=== PATIENT | male | born 1975 | race Two or more races ===

== ENCOUNTER 2019-04-01 10:21 | Outpatient (CLI) | payer OTHER ==
[2019-04-01 10:51] LABS: BASOPHILS # (AUTO) 0.1 K/uL (0.0-8.0); BASOPHILS % (AUTO) 1.2 % (0.0-2.0); EOSINOPHILS # (AUTO) 0.1 K/uL (0.0-0.7); EOSINOPHILS % (AUTO) 1.3 % (0.0-7.0); HEMATOCRIT 43.2 % (36.7-47.1); HEMOGLOBIN 14.4 g/dL (12.5-16.3); LYMPHOCYTES # (AUTO) 2.5 K/uL (20.0-40.0); LYMPHOCYTES % (AUTO) 27.7 % (20.5-51.5); MEAN CORPUSCULAR HEMOGLOBIN 31.9 uug (23.8-33.4); MEAN CORPUSCULAR HGB CONC 33 g/dL (32.5-36.3); MEAN CORPUSCULAR VOLUME 95.5 fL (73.0-96.2); MONOCYTES # (AUTO) 0.4 K/uL (2.0-10.0); NEUTROPHILS # (AUTO) 5.8 K/uL (1.8-8.9); NEUTROPHILS % (AUTO) 64.8 % (38.5-71.5); PLATELET COUNT (AUTO) 274 K/uL (152-348); RED BLOOD CELL COUNT(AUTO) 4.52 MIL/uL (4.06-5.63)
[2019-04-01 10:55] LABS: *BILIRUBIN,URIN NEGATIVE (NEGATIVE); *BLOOD, URINE NEGATIVE (NEGATIVE); *CLARITY,URINE CLEAR (CLEAR); *COLOR,URINE YELLOW (YELLOW); *KETONES,URINE NEGATIVE (NEGATIVE); *UROBILINOGEN,URINE 0.2 E.U./dl (NORMAL); LEUKOCYTE ESTERASE ,URINE NEGATIVE (NEGATIVE); NITRITE, URINE NEGATIVE (NEGATIVE); UGLUCOSE NEGATIVE (NEGATIVE)
[2019-04-01 11:05] LABS: CREATININE 0.9 mg/dL (0.6-1.3); POTASSIUM 3.9 mmol/L (3.5-5.1)
[2019-04-01 11:27] LABS: CREATININE 0.9 mg/dL (0.6-1.3)
[2019-04-01 11:33] LABS: BILIRUBIN,TOTAL 0.3 mg/dL (0.2-1.0); TOTAL PROTEIN, SERUM 7.7 g/dL (6.4-8.2)
== END 2019-04-01 23:59 | disposition home or self-care (01) ==
LOC: LAB 10:21
PROVIDERS: ATTEND Orthopaedic Surgery
DX: Z01.818 Encounter for other preprocedural examination (principal); S83.241A Other tear of medial meniscus, current injury, right knee, initial encounter; X58.XXXA Exposure to other specified factors, initial encounter; Y93.89 Activity, other specified; Y92.89 Other specified places as the place of occurrence of the external cause; Y99.8 Other external cause status
CPT/HCPCS: 36415; 85025; 85730; A4663

== ENCOUNTER 2019-04-04 07:51 | Day surgery (SDC) | payer OTHER ==
[2019-04-04] MEDS ORDERED: ONDANSETRON 4 MG/2 ML VIAL IV ONE (07:52)
[2019-04-04] MEDS ORDERED: PROPOFOL 200 MG/20 ML BOTTLE IV ONE (07:52)
[2019-04-04] MEDS ORDERED: METOCLOPRAMIDE HCL 10 MG/2 ML VIAL IV ONE (07:52)
[2019-04-04] MEDS ORDERED: SEVOFLURANE 250 ML BOTTLE IH ONE (07:52)
[2019-04-04] MEDS ORDERED: CEFAZOLIN 1 G VIAL IM ONE (07:52)
[2019-04-04] MEDS ORDERED: KETOROLAC TROMETHAMINE 30 MG INJ IM ONE (07:52)
[2019-04-04] MEDS ORDERED: MIDAZOLAM HCL 2 MG/2 ML VIAL ONE (11:50)
[2019-04-04] MEDS ORDERED: FENTANYL CITRATE 250 MCG/5 ML AMPUL ONE (11:51)
[2019-04-04] MEDS ORDERED: BUPIVACAINE/EPI PF 0.25% 30 ML VIAL ONE (12:00)
[2019-04-04] MEDS ORDERED: MORPHINE SULFATE PF 10 MG/10 ML AMPUL IV ONE (12:00)
[2019-04-04] MEDS ORDERED: TRAMADOL HCL 50 MG TABLET ONE (14:04)
== END 2019-04-04 15:00 | disposition home or self-care (01) ==
LOC: DS 07:51
PROVIDERS: ATTEND Orthopaedic Surgery
DX: S83.241A Other tear of medial meniscus, current injury, right knee, initial encounter (principal); M65.88 Other synovitis and tenosynovitis, other site; K21.9 Gastro-esophageal reflux disease without esophagitis; M19.90 Unspecified osteoarthritis, unspecified site; Z82.49 Family history of ischemic heart disease and other diseases of the circulatory system; Z83.3 Family history of diabetes mellitus; X58.XXXA Exposure to other specified factors, initial encounter; Y93.89 Activity, other specified; Y92.89 Other specified places as the place of occurrence of the external cause; Y99.8 Other external cause status
CPT/HCPCS: 29881; C1713; J0690; J1885; J2250; J2274; J2405; J2765; J3010; J3490; J7120